=== PATIENT | male | born 1975 | race African-American/Black ===

== ENCOUNTER 2016-04-21 21:13 | Inpatient (IN) | payer SELFPAY ==
[~2016-04-21] VITALS: Ht 185.4 cm; Wt 78.0 kg
[~2016-04-21 21:13] MED LIST: ASPI81TA9 PO; CYCL10TA2 PO; HYDR-971 PO; NAPR500T8 PO
[2016-04-21] MEDS ORDERED: IV NORMAL SALINE 1000ML BAG 1,000 ML IV ONE (22:15)
[2016-04-21] MEDS ORDERED: ONDANSETRON PF 4 MG/2 ML VIAL. IV ONE (22:15)
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
[2016-04-21 22:57] LABS: BASO % 1 % (0-3); EOS % 3 % (0-3); HEMATOCRIT 44.1 % (39.0-53.0); HEMOGLOBIN 14.6 g/dL (13.0-17.5); LYMPH # 1.9 x10^3/uL (1.0-4.8); LYMPH % 25 % (24-48); MEAN CORPUSCULAR HEMOGLOBIN 31 pg (25-35); MEAN CORPUSCULAR HGB CONC 33 g/dL (31-37); MEAN CORPUSCULAR VOLUME 95 fL (79-100); MONO % 6 % (0-9); NEUT % 67 % (31-73); PLATELET COUNT 190 x10^3/uL (140-400); RED BLOOD COUNT 4.65 x10^6/uL (4.30-5.70); RED CELL DISTRIBUTION WIDTH 12.5 % (11.5-14.5); WHITE BLOOD COUNT 7.8 x10^3/uL (4.0-11.0)
[2016-04-21 23:06] LABS: CALCIUM 8.5 mg/dL (8.5-10.1); GFR 100.1; POTASSIUM 3.5 mmol/L (3.5-5.1)
[2016-04-21 23:12] LABS: ALBUMIN 3.4 g/dL (3.4-5.0); MAGNESIUM 2.1 mg/dL (1.8-2.4); TOTAL BILIRUBIN 0.5 mg/dL (0.2-1.0); TOTAL PROTEIN 6.7 g/dL (6.4-8.2)
[2016-04-21] MEDS ORDERED: CYCLOBENZAPRINE 10 MG TABLET. PO ONE (23:30)
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
[2016-04-22] VITALS (7 sets, daily range): BP systolic 131–173; BP diastolic 86–108
[2016-04-22] MEDS ORDERED: ONDANSETRON PF 4 MG/2 ML VIAL. IV PRN (00:45)
[2016-04-22] MEDS ORDERED: ACETAMINOPHEN 325 MG TABLET. PO PRN (00:45)
[2016-04-22] MEDS: IV NORMAL SALINE 1000ML BAG 1,000 ML IV SCH ×3 (01:33→17:30)
[2016-04-22] MEDS: HYDROCODONE/APAP 5/325MG TABLET. PO PRN ×4 (01:34→21:40)
--- NOTE | 2016-04-22 06:27 | EKG ---
[facility] [address] [place] [address] Test Date: 2016-04-21 Test Time: 21:34:43 Pat Name: CIRILO DE LA TORRE Department: Room: 646 1 Gender: M [employer]ice: : 1975 Requested By: SUN CALDERON Order Number: [id number] Reading MD: Rachel Montilla Measurements Intervals [place] Rate: 67 P: 56 RI: 126 QRS: 46 QRSD: 94 T: 23 QT: 404 QTc: 430 Interpretive Statements SINUS RHYTHM AMPLITUDE CRITERIA FOR LVH ABNORMAL ECG Electronically Signed On 04-25-2016 15:41:58 TREE EXPERT by Rachel Montilla
--- NOTE | 2016-04-22 07:36 | RAD ---
Portable AP upright view CXR: Clinical indications: Syncope today. Comparison: June 17, 2015. Findings: No acute lung infiltrate or pleural effusion or pulmonary edema or lung mass or pneumothorax is seen. The heart size, pulmonary vasculature, mediastinum and both cristina are unremarkable. Metallic foreign bodies are again seen within the left axillary region. Impression: No acute radiographic abnormality is seen.
--- NOTE | 2016-04-22 10:41 | CARD ---
APPROVED REPORT EXAM: Two-dimensional and M-mode echocardiogram with Doppler and color Doppler. Other Information Quality : GoodHR: 52bpm Rhythm : NSR, Bradycardia INDICATION Syncope 2D DIMENSIONS RVDd3.1 (2.9-3.5cm)Left Atrium(2D)2.7 (1.6-4.0cm) IVSd1.5 (0.7-1.1cm)Aortic Root(2D)3.3 (2.0-3.7cm) LVDd4.3 (3.9-5.9cm)LVOT Diameter2.3 (1.8-2.4cm) PWd1.5 (0.7-1.1cm)LVDs3.2 (2.5-4.0cm) FS (%) 25.7 %SV43.0 ml LVEF(%)50.9 (>50%) Aortic Valve AoV Peak Edi.86.7cm/sAoV VTI20.1cm AO Peak GR.3.0mmHgLVOT Peak Edi.55.2cm/s AO Mean GR.2mmHgAVA (VMAX)2.61cm2 Mitral Valve MV E Bkyxclno07.9cm/sMV E Peak Gr.2mmHg MV DECEL [id number] A Aignpngh44.6cm/s MV E Mean Gr.1mmHgMV BII80kt E/A Ratio1.6MVA (PHT)2.99cm2 Tricuspid Valve TR P. Cwxjvdvp528cr/sRAP ZESODIHL9slUo TR Peak Gr.56iwWoCSPZ96tnPq Pulmonary Vein S1 Auqmbiro58.8cm/sD2 Ztdbwhlv65.7cm/s LEFT VENTRICLE The left ventricle is normal size. There is mild concentric left ventricular hypertrophy. Left ventri jeevan systolic function is normal. The Ejection Fraction is 50-55%. There is normal LV segmental wall m otion. The left ventricular diastolic function and filling is normal for age. There is no ventricular septal defect visualized. RIGHT VENTRICLE The right ventricle is normal size. The right ventricular systolic function is normal. ATRIA The left atrium size is normal. The right atrium size is normal. The interatrial septum is intact wit h no evidence for an atrial septal defect or patent foramen ovale as noted on 2-D or Doppler imaging. AORTIC VALVE The aortic valve is normal in structure and function. The aortic valve is trileaflet. Doppler and Col or Flow revealed trace aortic regurgitation. There is no significant aortic valvular stenosis. MITRAL VALVE The mitral valve is normal in structure. There is no evidence of mitral valve prolapse. There is no m itral valve stenosis. Doppler and Color Flow revealed mild mitral regurgitation. TRICUSPID VALVE The tricuspid valve is normal in structure. Doppler and Color Flow revealed mild tricuspid regurgitat ion.There is no pulmonary hypertension.The PA pressure was estimated at 26 mmHg. There is no tricuspi d valve stenosis. PULMONIC VALVE The pulmonary valve is normal in structure. Doppler and Color Flow revealed mild pulmonic valvular re gurgitation. There is no pulmonic valvular stenosis. GREAT VESSELS The aortic root is normal in size. The ascending aorta is normal in size. Normal pulmonary venous edna w (Doppler). The IVC is normal in size and collapses >50% with inspiration. PERICARDIAL EFFUSION There is no evidence of significant pericardial effusion. Critical Notification Critical Value: No <Conclusion> Left ventricle systolic function is normal. The Ejection Fraction is 50-55%. There is normal LV segmental wall motion. Doppler and Color Flow revealed trace aortic regurgitation. Doppler and Color Flow revealed mild mitral regurgitation. Doppler and Color Flow revealed mild tricuspid regurgitation.There is no pulmonary hypertension.The P A pressure was estimated at 26 mmHg. Doppler and Color Flow revealed mild pulmonic valvular regurgitation.
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
[2016-04-22 12:24] LABS: CHOLESTEROL/HDL RATIO 2.9
[2016-04-22] MEDS: ASPIRIN ENTERIC COATED 81 MG TABLET.DR. PO SCH (12:47)
[2016-04-22] MEDS: LOSARTAN POTASSIUM 25 MG TABLET. PO SCH (12:47)
[2016-04-22] MEDS: HYDROCHLOROTHIAZIDE 12.5 MG CAPSULE. PO SCH (12:47)
[2016-04-22] MEDS: NAPROXEN 500 MG TABLET PO SCH ×2 (12:47→21:23)
[2016-04-22 13:30] LABS: BILIRUBIN,URINE NEGATIVE (NEG); GLUCOSE,URINE NEGATIVE (NEG); NITRITE,URINE NEGATIVE (NEG); PH,URINE 6.5; PROTEIN,URINE NEGATIVE (NEG-TRACE)
[2016-04-22 13:43] LABS: BARBITURATES NEG (NEG); BENZODIAZEPINES NEG (NEG); CANNABINOIDS NEG (NEG); COCAINE POS (NEG); ETHANOL, URINE NEG (NEG); METHADONE NEG (NEG); OPIATES POS (NEG); PHENCYCLIDINE NEG (NEG)
[2016-04-22 14:31] LABS: BACTERIA,URINE 0 /HPF (0-FEW); RBC,URINE 0 /HPF (0-2); WBC,URINE 0 /HPF (0-4)
[2016-04-22] MEDS: CYCLOBENZAPRINE 10 MG TABLET. PO SCH ×2 (14:42→21:22)
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
[2016-04-23] MEDS: HYDROCODONE/APAP 5/325MG TABLET. PO PRN ×2 (02:57→11:00)
[2016-04-23 03:00] VITALS: BP 144/64
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
[2016-04-23 04:26] LABS: BASO % 1 % (0-3); EOS % 5 % (0-3); HEMATOCRIT 43.2 % (39.0-53.0); HEMOGLOBIN 14.3 g/dL (13.0-17.5); LYMPH # 1.9 x10^3/uL (1.0-4.8); LYMPH % 31 % (24-48); MEAN CORPUSCULAR HEMOGLOBIN 32 pg (25-35); MEAN CORPUSCULAR HGB CONC 33 g/dL (31-37); MEAN CORPUSCULAR VOLUME 95 fL (79-100); MONO % 6 % (0-9); NEUT % 58 % (31-73); PLATELET COUNT 160 x10^3/uL (140-400); RED BLOOD COUNT 4.54 x10^6/uL (4.30-5.70); RED CELL DISTRIBUTION WIDTH 12.7 % (11.5-14.5); WHITE BLOOD COUNT 6.1 x10^3/uL (4.0-11.0)
[2016-04-23 04:49] LABS: CALCIUM 8.5 mg/dL (8.5-10.1); CREATININE 1.1 mg/dL (0.7-1.3); GFR 89.7; POTASSIUM 3.9 mmol/L (3.5-5.1)
[2016-04-23 07:00] VITALS: BP 146/94
[2016-04-23] MEDS: CYCLOBENZAPRINE 10 MG TABLET. PO SCH ×2 (10:57→14:42)
[2016-04-23] MEDS: ASPIRIN ENTERIC COATED 81 MG TABLET.DR. PO SCH (10:58)
[2016-04-23] MEDS: NAPROXEN 500 MG TABLET PO SCH (10:58)
[2016-04-23] MEDS: HYDROCHLOROTHIAZIDE 12.5 MG CAPSULE. PO SCH (10:58)
[2016-04-23] MEDS: LOSARTAN POTASSIUM 25 MG TABLET. PO SCH (10:58)
[2016-04-23 11:00] VITALS: BP 143/86
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
[2016-04-23] MEDS ORDERED: HYDR-2666 PO (14:18)
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
[2016-04-23 15:00] VITALS: BP 149/97
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
== END 2016-04-23 23:43 | disposition home or self-care (01) | DRG 101 ==
LOC: ER 21:13 → 6 SOUTH 04-22 00:07
PROVIDERS: ADMIT Internal Medicine; ATTEND Internal Medicine
DX: G40.89 Other seizures (principal); R55 Syncope and collapse; F14.90 Cocaine use, unspecified, uncomplicated; F41.0 Panic disorder [episodic paroxysmal anxiety]; H53.19 Other subjective visual disturbances; I10 Essential (primary) hypertension; K21.9 Gastro-esophageal reflux disease without esophagitis; F41.9 Anxiety disorder, unspecified; Z91.19 Patient's noncompliance with other medical treatment and regimen; Z82.49 Family history of ischemic heart disease and other diseases of the circulatory system; Z72.820 Sleep deprivation; Z98.890 Other specified postprocedural states
CPT/HCPCS: 36415; 70450; 71010; 72125; 80048; 80053; 80061; 81001; 82550; 82607; 83605; 83735; 84443; 85027; 93005; 93306; 95816; 96361; 96374; G0481; J2405; J7030; 99285-25

== ENCOUNTER 2016-05-23 14:18 | Emergency (ER) | payer SELFPAY ==
[~2016-05-23 14:18] MED LIST changes: +HYDR-2666 PO
[2016-05-23 14:30] VITALS: BP 168/101
[2016-05-23] MEDS ORDERED: HYDROMORPHONE 2 MG/ML VIAL. IM ONE (15:30)
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
[2016-05-23] MEDS ORDERED: OXYC10TA PO (16:04)
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
== END 2016-05-23 15:30 | disposition home or self-care (01) ==
LOC: ER 14:18
DX: M54.5 Low back pain (principal); M54.6 Pain in thoracic spine; S20.219A Contusion of unspecified front wall of thorax, initial encounter; S00.83XA Contusion of other part of head, initial encounter; F07.81 Postconcussional syndrome; I10 Essential (primary) hypertension; F43.10 Post-traumatic stress disorder, unspecified; F14.10 Cocaine abuse, uncomplicated; V89.2XXA Person injured in unspecified motor-vehicle accident, traffic, initial encounter; Y93.89 Activity, other specified; Y92.89 Other specified places as the place of occurrence of the external cause; Y99.8 Other external cause status
CPT/HCPCS: 70110; 71101; 72072; 72100; 96372; 99284; J1170